=== PATIENT | female | born 1995 | race Caucasian/White ===

== ENCOUNTER 2019-09-30 09:38 | Emergency (ER) | payer OTHER ==
[2019-09-30] MEDS ORDERED: TETRACAINE HCL 0.5% OPHTH SOL 1 DROP ONE (09:51)
--- NOTE | 2019-09-30 10:13 | ED.PDOC ---
History of Present Illness - General Time Seen by Provider: 09/30/19 10:10 Source: patient - History of Present Illness Initial Comments: 24 yo female who presents with cc of Right eye pain and redness. Onset 4 days ago, gradual worsening, now reports constant 8/10 burning/throbbing pain mostly to lateral aspect of R eye, radiates throughout the eye. Reports redness and frequent watery/teary discharge of the eye as well. Has tried Visine drops with out relief. Slightly blurry vision. Pain worse with bright lights. No hx of FB's. Does not wear contacts. Allergies/Adverse Reactions: Allergies NO KNOWN ALLERGY Allergy (Verified 09/30/19 10:16) Home Medications: Ambulatory Orders Vit W/ Ferrous Fumara [] 1 tab PO DAILY 03/06/14 RX: Sertraline HCl 50 mg PO DAILY 05/19/14 Fe Fum-Iron Polysacch Complex- [Integra Plus] 1 cap PO DAILY 06/01/14 Ibuprofen [Motrin Tab] 600 mg PO Q8H #20 tab 06/08/14 Norethindrone (Contraceptive) [Chelsey] 0.35 mg PO QAM #90 tab 06/08/14 Cephalexin Monohydrate [Keflex Cap] 500 mg PO Q6HRS #40 cap 06/18/14 RX: Ofloxacin (Ophth) [Ofloxacin] 0.3 % OP Q4H 7 Days #10 ml 09/30/19 RX: Ofloxacin (Ophth) [Ofloxacin] 1 drop OPHTH Q30MIN 6 Days #10 ml 09/30/19 Review of Systems - Review of Systems Review of Systems: 09/30/19 10:12 as per HPI All other Systems: Reviewed and Negative Past Medical History (General) - Patient Medical History Hx Seizures: No Hx Stroke: No Hx Dementia: No Hx Asthma: No Hx of COPD: No Hx Cardiac Disorders: No Hx Congestive Heart Failure: No Hx Pacemaker: No Hx Hypertension: No Hx Thyroid Disease: No Hx Diabetes: No Hx Gastroesophageal Reflux: No Hx Renal Disease: No Hx Cancer: No Hx of HIV: No Hx Hepatitis C: No Hx MRSA: No - Vaccination History Hx Tetanus, Diphtheria Vaccination: Yes Hx Influenza Vaccination: No Hx Pneumococcal Vaccination: No - Social History Hx Tobacco Use: No Hx Chewing Tobacco Use: No Hx Alcohol Use: No Hx Substance Use: No Hx Substance Use Treatment: No Hx Depression: Yes Hx Physical Abuse: No Hx Emotional Abuse: No Hx Suspected Abuse: No - Female History Hx Last Menstrual Period: 10/24/15 Patient : Yes Expected Date of Delivery:: 06/17/14 Family Medical History - Family History Mother Hx Family;Other[facility]. Mother Maternal Living Status: Still Living Hx Family Cancer: Yes - Pt states mother had some cancer but is unsure Paternal Grandparents Living Status: Hx Family Cancer: Yes Hx Family;Other: Father of baby grandfather of a brain tumor Physical Exam - Physical Exam General Appearance: Alert, Comfortable, No apparent distress Eye Exam: right other - Right eye with moderate conjunctival erythema, no FB's noted, approx 1x2 mm corneal ulcer noted at approx 7 o'clock position with fluorescein staining, left normal Ears, Nose, Throat: hearing grossly normal, normal ENT inspection, normal pharynx Neck: non-tender, full range of motion, supple, normal inspection Respiratory: chest non-tender, lungs clear, normal breath sounds, no respiratory distress Cardiovascular/Chest: normal peripheral pulses, regular rate, rhythm, no edema, no gallop, no JVD, no murmur Peripheral Pulses: radial,right: 2+, radial,left: 2+ Gastrointestinal/Abdominal: non tender, soft Extremity: normal range of motion, non-tender, normal inspection, no pedal edema, no calf tenderness Neurologic: darklight inspector II-XII nml as tested, no motor/sensory deficits, alert, normal mood/affect, oriented x 3 Skin Exam: normal color, warm/dry Progress - Progress Progress: 09/30/19 10:14 Corneal ulcer -will treat with aggressive early antibiotic eye drops (gentamicin 1 drop q1h while awake, q4h at night for next 2-3 days, space to 1 drop q4h as eye redness and pain are improving). F/u with eye doctor in next 24-48 hours is strongly recommended for repeat evaluation. -dc home in fair condition, return warnings discussed Jerrell Carty MD Billing #[id number] Departure - Departure Clinical Impression: Corneal ulcer Time of Disposition: 10:16 Disposition: Discharge to Home or Self Care Condition: Fair Departure Forms: ED Discharge - Pt. Copy, Patient Portal Self Enrollment Instructions: Corneal Ulcer (DC) Diet: resume usual diet Prescriptions: RX: Ofloxacin (Ophth) [Ofloxacin] 1 drop OPHTH Q30MIN 6 Days #10 ml RX: Ofloxacin (Ophth) [Ofloxacin] 0.3 % OP Q4H 7 Days #10 ml Home Medications: Ambulatory Orders Vit W/ Ferrous Fumara [] 1 tab PO DAILY 03/06/14 RX: Sertraline HCl 50 mg PO DAILY 05/19/14 Fe Fum-Iron Polysacch Complex- [Integra Plus] 1 cap PO DAILY 06/01/14 Ibuprofen [Motrin Tab] 600 mg PO Q8H #20 tab 06/08/14 Norethindrone (Contraceptive) [Chelsey] 0.35 mg PO QAM #90 tab 06/08/14 Cephalexin Monohydrate [Keflex Cap] 500 mg PO Q6HRS #40 cap 06/18/14 RX: Ofloxacin (Ophth) [Ofloxacin] 0.3 % OP Q4H 7 Days #10 ml 09/30/19 RX: Ofloxacin (Ophth) [Ofloxacin] 1 drop OPHTH Q30MIN 6 Days #10 ml 09/30/19 Additional Instructions: Follow up with the eye doctor in next 24-48 hours. Use the antibiotic eye drops as directed. Return if symptoms rapidly worsening or worsening vision loss in Right eye despite therapy or other concerning symptoms. Do not wear contact lenses in the eye while healing.
[2019-09-30] MEDS ORDERED: GENTAMICIN 0.3% OPHTH OINT 1 APPLIC OPHTH ONE (10:36)
[2019-09-30 11:05] VITALS: BP 114/86; TEMP 98; O2SAT 99
[2019-09-30] MEDS ORDERED: GENTAMICIN 0.3% OPHTH SOL 1 DROP OPHTH ONE (12:00)
== END 2019-09-30 11:05 | disposition home or self-care (01) ==
LOC: ER 09:38
DX: H16.001 Unspecified corneal ulcer, right eye (principal); F32.9 Major depressive disorder, single episode, unspecified; Z79.899 Other long term (current) drug therapy

== ENCOUNTER → 2020-07-19 | Outpatient (CLI) | payer OTHER | LOC: LAB.O 08:31 | PROVIDERS: ATTEND Obstetrics & Gynecology | DX: O26.23 Pregnancy care for patient with recurrent pregnancy loss, third trimester (principal); Z3A.23 23 weeks gestation of pregnancy; Z13.1 Encounter for screening for diabetes mellitus; Z13.0 Encounter for screening for diseases of the blood and blood-forming organs and certain disorders involving the immune mechanism ==